=== PATIENT | male | born 1990 | race Caucasian/White ===

== ENCOUNTER 2023-11-24 15:38 | Emergency (ER) | payer SELFPAY ==
[2023-11-24 17:26] LABS: CORONAVIRUS COVID-19 NAA NEGATIVE (NEGATIVE); INFLUENZA A NAA NEGATIVE (NEGATIVE); INFLUENZA B NAA POSITIVE (NEGATIVE); RESPIRATORY SYNCYTIAL VIR NAA NEGATIVE (NEGATIVE)
== END 2023-11-24 19:41 | disposition left against medical advice (07) ==
LOC: MW.ED 15:38
DX: Z53.21 Procedure and treatment not carried out due to patient leaving prior to being seen by health care provider (principal)
CPT/HCPCS: 0241U; 87651